=== PATIENT | female | born 1970 | race Hispanic/Latino ===

== ENCOUNTER 2018-09-02 10:15 | Inpatient (IN) | payer MEDICAID, OTHER ==
[2018-09-02] VITALS (11 sets, daily range): BP systolic 107–166; BP diastolic 58–109
[~2018-09-02] VITALS: Ht 152.4 cm; Wt 87.7 kg
[2018-09-02] MEDS ORDERED: SODIUM CHLORIDE 0.9% 1000ML 1,000 ML IV ONE ×3 (10:40→13:59)
[2018-09-02] MEDS ORDERED: DICYCLOMINE HCL 10 MG/ML 2ML AMP IM ONE (10:40)
[2018-09-02] MEDS ORDERED: ONDANSETRON HCL 4 MG/2 ML VIAL ONE ×2 (10:41→11:48)
[2018-09-02 10:57] LABS: APPEARANCE,URINE Clear (CLEAR); BILIRUBIN,URINE Negative (NEGATIVE); COLOR,URINE Yellow (YELLOW); GLUCOSE, URINE (UA) >=1000 mg/dL (NEGATIVE); KETONES,URINE >=160 mg/dL (NEGATIVE); LEUKOCYTE ESTERASE ,URINE Negative (NEGATIVE); NITRATE,URINE Negative (NEGATIVE); OCCULT BLOOD,URINE Moderate (NEGATIVE); PROTEIN,URINE 300 (NEGATIVE); UROBILINOGEN,URINE 0.2 mg/dL (0.2-1.0)
[2018-09-02 11:04] LABS: BASOPHILS % (AUTO) 0.7 % (0.0-5.0); EOSINOPHILS % (AUTO) 0.6 % (0.0-8.0); MEAN CORPUSCULAR VOLUME 90.5 fL (79-99); MONOCYTES % (AUTO) 5.4 % (3.0-13.0); NEUTROPHILS % (AUTO) 65.3 % (40.0-77.0); NUCLEATED RED BLOOD CELLS 0.2 % (0.0-0.19); PLATELET COUNT (AUTO) 275 K/uL (130-400); RED BLOOD CELL COUNT(AUTO) 4.78 MIL/uL (4.00-5.50); RED CELL DISTRIBUTION WIDTH 13.5 % (11.0-15.5); WHITE BLOOD COUNT (AUTO) 18.3 K/uL (4.8-10.8)
[2018-09-02 11:34] LABS: POTASSIUM 4.2 mmol/L (3.5-5.1)
[2018-09-02 11:46] LABS: BACTERIA,URINE Rare /HPF (None Seen); MUCUS,URINE Rare LPF (None Seen); RBC,URINE 0-1 /HPF (0-1); SQUAMOUS EPITHELIAL CELL,UR Few /HPF (0-2); WBC,URINE 0-1 /HPF (0-1)
[2018-09-02] MEDS ORDERED: MORPHINE SULFATE 2 MG/ML 1ML SYG ONE (11:48)
[2018-09-02 11:57] LABS: HEMATOCRIT 36.8 % (36-48); MEAN CORPUSCULAR HEMOGLOBIN 30.9 pg (27.0-33.0)
[2018-09-02 11:58] LABS: MEAN CORPUSCULAR HGB CONC 34.2 g/dL (32.0-36.0)
[2018-09-02 12:22] LABS: ABG BASE EXCESS -12.4 mmol/L (-2.0-3.0); ABG HCO3 14.2 mmol/L (21.0-28.0); ABG OXYGEN SATURATION 95.5 % (95.0-99.0); ABG PCO2 35 mmHg (32-45)
[2018-09-02 12:30] LABS: BILIRUBIN,DIRECT 0.1 mg/dL (0.0-0.3); BILIRUBIN,TOTAL 0.6 mg/dL (0.2-1.0); CREATININE 0.3 mg/dL (0.5-1.5)
[2018-09-02 12:31] LABS: TOTAL PROTEIN, SERUM 6.6 g/dL (6.0-8.3)
[2018-09-02] MEDS ORDERED: INSULIN HUMULIN R 100 UNIT/ML 3ML ONE (12:32)
[2018-09-02] MEDS ORDERED: SODIUM CHLORIDE 0.9% 100 ML IV ONE (12:32)
[2018-09-02] MEDS ORDERED: HUMAN IV SCH ×2 (13:30)
[2018-09-02] MEDS ORDERED: SODIUM CHLORIDE 0.9% 1000ML 1,000 ML IV SCH ×2 (13:30→16:24)
[2018-09-02] MEDS ORDERED: INSULIN REGULAR IV SCH ×2 (13:30)
[2018-09-02] MEDS ORDERED: [UNRECOGNIZED DRUG - OTHER] IV SCH ×2 (13:30)
[2018-09-02] MEDS ORDERED: MORPHINE SULFATE 4 MG/1ML SYG ONE (13:59)
[2018-09-02 15:01] LABS: POTASSIUM 5.4 mmol/L (3.5-5.1)
[2018-09-02 15:49] LABS: MAGNESIUM 1.56 mg/dL (1.80-2.40); PHOSPHORUS 3.5 mg/dL (2.5-4.9)
[2018-09-02 15:51] LABS: CREATININE 0.3 mg/dL (0.5-1.5)
[2018-09-02] MEDS ORDERED: DEXTROSE 5 %-0.45 % NACL 1,000 ML IV PRN (16:24)
[2018-09-02] MEDS: INSULIN HUMULIN R 100 UNIT/ML 3ML IV SCH (16:30)
[2018-09-02] MEDS: ONDANSETRON HCL 4 MG/2 ML VIAL IV PRN ×2 (16:59→22:56)
[2018-09-02] MEDS: MORPHINE SULFATE 4 MG/1ML SYG IV PRN ×2 (17:01→20:59)
[2018-09-02 17:54] LABS: HEMOGLOBIN A1C 11.7 % (4.0-6.0)
[2018-09-02] MEDS: SODIUM CHLORIDE 0.9% 1000ML 1,000 ML IV SCH ×2 (19:48→19:52)
[2018-09-02] MEDS: MAG HYDROX/AL HYDROX/SIMETH ES 30 ML SUSP UDCUP PO PRN (19:50)
[2018-09-02] MEDS: ACETAMINOPHEN 325 MG TAB PO PRN ×2 (19:51→20:02)
[2018-09-02] MEDS ORDERED: METOPROLOL TARTRATE 1 MG/ML 5ML VIAL IV PRN (20:30)
[2018-09-02] MEDS: POTASSIUM CHLORIDE 10MEQ/100ML 100 ML IV PRN ×2 (20:33→22:36)
[2018-09-02 21:14] LABS: MAGNESIUM 1.4 mg/dL (1.80-2.40); POTASSIUM 3.7 mmol/L (3.5-5.1)
[2018-09-02 21:55] LABS: CREATININE 0.3 mg/dL (0.5-1.5)
[2018-09-02] MEDS ORDERED: POTASSIUM CHLORIDE 20MEQ/100ML 100 ML IV ONE (23:47)
[2018-09-03] VITALS (19 sets, daily range): BP systolic 109–158; BP diastolic 41–110
[2018-09-03] MEDS ORDERED: KETOROLAC TROMETHAMINE 30MG/ML ONE (00:41)
[2018-09-03] MEDS ORDERED: MAGNESIUM 2GM PREMIX 50ML 50 ML IV ONE (00:42)
[2018-09-03] MEDS: SODIUM CHLORIDE 0.9% 1000ML 1,000 ML IV SCH ×5 (00:56→19:48)
[2018-09-03 02:40] LABS: POTASSIUM 4.5 mmol/L (3.5-5.1)
[2018-09-03 02:41] LABS: AMYLASE 365 U/L (25-115); CREATININE 0.4 mg/dL (0.5-1.5); HDL CHOLESTEROL 12 mg/dL (35-85); MAGNESIUM 1.92 mg/dL (1.80-2.40); PHOSPHORUS 2.3 mg/dL (2.5-4.9); TRIGLYCERIDES 63 mg/dL (30-200)
[2018-09-03 02:55] LABS: LIPASE 2774 U/L (114-286)
[2018-09-03 02:56] LABS: LDL DIRECT < 5 mg/dL (0-99)
[2018-09-03 03:43] LABS: CHOLESTEROL > 600 mg/dL (<200)
[2018-09-03] MEDS: MORPHINE SULFATE 4 MG/1ML SYG IV PRN ×5 (04:07→22:15)
[2018-09-03] MEDS: KETOROLAC TROMETHAMINE 30MG/ML IV PRN (08:19)
[2018-09-03 08:25] LABS: CREATININE 0.6 mg/dL (0.5-1.5); MAGNESIUM 1.9 mg/dL (1.80-2.40); PHOSPHORUS 1.3 mg/dL (2.5-4.9); POTASSIUM 4.2 mmol/L (3.5-5.1)
[2018-09-03] MEDS: ENOXAPARIN SODIUM 40 MG/0.4 ML SYRINGE SQ SCH (09:29)
[2018-09-03] MEDS: PANTOPRAZOLE 40 MG/VIAL IVP SCH (09:33)
[2018-09-03 14:11] LABS: CREATININE 0.5 mg/dL (0.5-1.5)
[2018-09-03 14:13] LABS: PHOSPHORUS 1.1 mg/dL (2.5-4.9)
[2018-09-03] MEDS: POTASSIUM PHOS 15 mMOL+NS250ML 250 ML IV SCH (15:00)
[2018-09-03] MEDS ORDERED: HYDROMORPHONE 1 MG/1 ML AMP ONE (19:31)
[2018-09-03] MEDS: HYDROMORPHONE HCL 2 MG/ML VIAL IVP PRN (19:47)
[2018-09-03] MEDS: INSULIN HUMULIN R 100 UNIT/ML 3ML IV SCH (19:48)
[2018-09-04] VITALS (14 sets, daily range): BP systolic 100–141; BP diastolic 39–80
[2018-09-04] MEDS ORDERED: HYDROMORPHONE 1 MG/1 ML AMP ONE ×3 (01:41→19:59)
[2018-09-04] MEDS: HYDROMORPHONE HCL 2 MG/ML VIAL IVP PRN ×3 (01:46→20:11)
[2018-09-04 03:38] LABS: BASOPHILS % (AUTO) 0.7 % (0.0-5.0); EOSINOPHILS % (AUTO) 0.2 % (0.0-8.0); MEAN CORPUSCULAR HEMOGLOBIN 30.8 pg (27.0-33.0); MEAN CORPUSCULAR HGB CONC 33.9 g/dL (32.0-36.0); MEAN CORPUSCULAR VOLUME 90.8 fL (79-99); MONOCYTES % (AUTO) 4.3 % (3.0-13.0); NEUTROPHILS % (AUTO) 82.8 % (40.0-77.0); NUCLEATED RED BLOOD CELLS 0.1 % (0.0-0.19); PLATELET COUNT (AUTO) 185 K/uL (130-400); RED BLOOD CELL COUNT(AUTO) 4.29 MIL/uL (4.00-5.50); RED CELL DISTRIBUTION WIDTH 14.2 % (11.0-15.5)
[2018-09-04 03:48] LABS: ALBUMIN 2.2 g/dL (3.5-5.0); BILIRUBIN,TOTAL 0.8 mg/dL (0.2-1.0); CREATININE 0.5 mg/dL (0.5-1.5); POTASSIUM 3.5 mmol/L (3.5-5.1); TOTAL PROTEIN, SERUM 6.2 g/dL (6.0-8.3)
[2018-09-04] MEDS: INSULIN GLARGINE 100 UNITS/ML 10 ML VIAL SQ SCH ×2 (07:41→20:12)
[2018-09-04] MEDS: PANTOPRAZOLE 40 MG/VIAL IVP SCH (07:44)
[2018-09-04] MEDS: ENOXAPARIN SODIUM 40 MG/0.4 ML SYRINGE SQ SCH (07:49)
[2018-09-04] MEDS: POTASSIUM CHLORIDE 20MEQ/100ML 100 ML IV PRN (07:55)
[2018-09-04] MEDS: KETOROLAC TROMETHAMINE 30MG/ML IV PRN ×3 (08:01→15:56)
[2018-09-04] MEDS: INSULIN LISPRO 100 UNIT/ML 3ML SQ SCH ×3 (12:20→23:48)
[2018-09-04] MEDS: MORPHINE SULFATE 4 MG/1ML SYG IV PRN ×2 (12:20→23:00)
[2018-09-04 13:33] LABS: CREATININE 0.5 mg/dL (0.5-1.5); MAGNESIUM 2.2 mg/dL (1.80-2.40); PHOSPHORUS 1.3 mg/dL (2.5-4.9); POTASSIUM 3.9 mmol/L (3.5-5.1)
[2018-09-04] MEDS: SODIUM CHLORIDE 0.9% 1000ML 1,000 ML IV SCH ×3 (15:40→23:49)
[2018-09-04] MEDS: POTASSIUM PHOS 15 mMOL+NS250ML 250 ML IV SCH (15:41)
[2018-09-05] MEDS ORDERED: HYDROMORPHONE 1 MG/1 ML AMP ONE ×2 (00:58→06:34)
[2018-09-05] MEDS: HYDROMORPHONE HCL 2 MG/ML VIAL IVP PRN ×2 (01:01→06:40)
[2018-09-05] MEDS: MORPHINE SULFATE 2 MG/ML 1ML SYG IV PRN (03:11)
[2018-09-05 03:39] LABS: HEMATOCRIT 34.4 % (36-48); MEAN CORPUSCULAR HEMOGLOBIN 31.2 pg (27.0-33.0); MEAN CORPUSCULAR HGB CONC 34.3 g/dL (32.0-36.0); MEAN CORPUSCULAR VOLUME 90.9 fL (79-99); PLATELET COUNT (AUTO) 219 K/uL (130-400); RED BLOOD CELL COUNT(AUTO) 3.78 MIL/uL (4.00-5.50); RED CELL DISTRIBUTION WIDTH 14.3 % (11.0-15.5); WHITE BLOOD COUNT (AUTO) 8.3 K/uL (4.8-10.8)
[2018-09-05 03:51] LABS: CREATININE 0.5 mg/dL (0.5-1.5); MAGNESIUM 2.2 mg/dL (1.80-2.40); PHOSPHORUS 1.8 mg/dL (2.5-4.9); POTASSIUM 3.6 mmol/L (3.5-5.1)
[2018-09-05 04:00] VITALS: BP 113/73
[2018-09-05] MEDS: INSULIN GLARGINE 100 UNITS/ML 10 ML VIAL SQ SCH ×2 (06:25→22:59)
[2018-09-05] MEDS: INSULIN LISPRO 100 UNIT/ML 3ML SQ SCH ×3 (06:25→18:26)
[2018-09-05] MEDS: MAG HYDROX/AL HYDROX/SIMETH ES 30 ML SUSP UDCUP PO PRN (06:41)
[2018-09-05 07:27] VITALS: BP 129/44
[2018-09-05] MEDS: FAMOTIDINE/PF 20 MG/2 ML VIAL IV SCH ×2 (08:28→20:14)
[2018-09-05] MEDS: FENOFIBRATE NANOCRYSTALLIZED 145 MG TAB PO SCH (08:28)
[2018-09-05] MEDS: ENOXAPARIN SODIUM 40 MG/0.4 ML SYRINGE SQ SCH (08:28)
[2018-09-05] MEDS: SODIUM CHLORIDE 0.9% 1000ML 1,000 ML IV SCH ×3 (08:29→23:00)
[2018-09-05] MEDS ORDERED: LORAZEPAM 2 MG/ML 1 ML VIAL IVP PRN (11:15)
[2018-09-05] MEDS ORDERED: LORAZEPAM 2 MG/ML 1 ML VIAL ONE (11:41)
[2018-09-05] MEDS: MORPHINE SULFATE 4 MG/1ML SYG IV PRN ×4 (13:18→22:57)
[2018-09-05 13:32] LABS: CREATININE 0.4 mg/dL (0.5-1.5); MAGNESIUM 1.9 mg/dL (1.80-2.40); PHOSPHORUS 2.1 mg/dL (2.5-4.9); POTASSIUM 3.2 mmol/L (3.5-5.1)
[2018-09-05] MEDS: NICOTINE 21 MG/ 24 HR PATCH TD SCH (14:55)
[2018-09-05] MEDS ORDERED: DIATR MEGLU/DIATRIZOATE SODIUM 30 ML BOTTLE ONE (15:11)
[2018-09-05 16:17] VITALS: BP 137/86
[2018-09-05 20:00] VITALS: BP 127/73
[2018-09-05] MEDS: NIACIN 250 MG TABLET.SA PO SCH ×2 (20:19→21:00)
[2018-09-05 23:59] VITALS: BP 134/65
[2018-09-06] MEDS: MORPHINE SULFATE 4 MG/1ML SYG IV PRN ×4 (01:33→22:25)
[2018-09-06] MEDS: KETOROLAC TROMETHAMINE 30MG/ML IV PRN ×3 (03:27→16:54)
[2018-09-06] MEDS: SODIUM CHLORIDE 0.9% 1000ML 1,000 ML IV SCH ×3 (03:32→20:41)
[2018-09-06 03:42] LABS: HEMATOCRIT 33.9 % (36-48); MEAN CORPUSCULAR HEMOGLOBIN 30.1 pg (27.0-33.0); MEAN CORPUSCULAR HGB CONC 33.4 g/dL (32.0-36.0); MEAN CORPUSCULAR VOLUME 90.2 fL (79-99); PLATELET COUNT (AUTO) 207 K/uL (130-400); RED BLOOD CELL COUNT(AUTO) 3.76 MIL/uL (4.00-5.50); RED CELL DISTRIBUTION WIDTH 14.3 % (11.0-15.5); WHITE BLOOD COUNT (AUTO) 10.2 K/uL (4.8-10.8)
[2018-09-06] MEDS ORDERED: HYDROMORPHONE HCL 2 MG/ML VIAL IVP PRN (03:45)
[2018-09-06 03:58] LABS: CREATININE 0.4 mg/dL (0.5-1.5)
[2018-09-06 04:00] VITALS: BP 138/85
[2018-09-06 04:13] LABS: POTASSIUM 2.9 mmol/L (3.5-5.1)
[2018-09-06] MEDS: POTASSIUM CHLORIDE 20MEQ/100ML 100 ML IV PRN ×4 (04:56→16:56)
[2018-09-06] MEDS: LIDOCAINE HCL-MPF 1% 2ML VIAL IVP PRN ×4 (05:03→16:57)
[2018-09-06] MEDS: INSULIN LISPRO 100 UNIT/ML 3ML SQ SCH ×4 (06:00→18:44)
[2018-09-06] MEDS: INSULIN GLARGINE 100 UNITS/ML 10 ML VIAL SQ SCH ×2 (06:38→21:52)
[2018-09-06 07:49] VITALS: BP_SYST 122; BP_SYST 157; BP_DIAS 82; BP_DIAS 98
[2018-09-06] MEDS: FAMOTIDINE/PF 20 MG/2 ML VIAL IV SCH ×2 (09:27→21:39)
[2018-09-06] MEDS: NICOTINE 21 MG/ 24 HR PATCH TD SCH (09:39)
[2018-09-06] MEDS ORDERED: LIDOCAINE HCL MPF 1% 5ML VIAL ONE (09:44)
[2018-09-06] MEDS: FENOFIBRATE NANOCRYSTALLIZED 145 MG TAB PO SCH (11:01)
[2018-09-06] MEDS: ENOXAPARIN SODIUM 40 MG/0.4 ML SYRINGE SQ SCH (11:06)
[2018-09-06 11:26] VITALS: BP 140/90
[2018-09-06] MEDS: ONDANSETRON HCL 4 MG/2 ML VIAL IV PRN (12:55)
[2018-09-06 13:05] LABS: MAGNESIUM 1.8 mg/dL (1.80-2.40); POTASSIUM 3.3 mmol/L (3.5-5.1)
[2018-09-06] MEDS: MAGNESIUM 2GM PREMIX 50ML 50 ML IV PRN (13:20)
[2018-09-06 13:35] LABS: CREATININE 0.4 mg/dL (0.5-1.5)
[2018-09-06 16:27] VITALS: BP 143/65
[2018-09-06 20:31] VITALS: BP 131/80
[2018-09-06] MEDS: NIACIN 250 MG TABLET.SA PO SCH (21:00)
[2018-09-07] VITALS (7 sets, daily range): BP systolic 126–145; BP diastolic 58–79
[2018-09-07] MEDS: ONDANSETRON HCL 4 MG/2 ML VIAL IV PRN ×2 (01:13→10:22)
[2018-09-07] MEDS: KETOROLAC TROMETHAMINE 30MG/ML IV PRN ×3 (01:13→17:17)
[2018-09-07] MEDS: SODIUM CHLORIDE 0.9% 1000ML 1,000 ML IV SCH ×4 (02:15→21:28)
[2018-09-07 04:06] LABS: HEMATOCRIT 30.9 % (36-48); MEAN CORPUSCULAR HEMOGLOBIN 30.7 pg (27.0-33.0); MEAN CORPUSCULAR VOLUME 90.3 fL (79-99); NUCLEATED RED BLOOD CELLS 0.1 % (0.0-0.19); PLATELET COUNT (AUTO) 231 K/uL (130-400); RED BLOOD CELL COUNT(AUTO) 3.43 MIL/uL (4.00-5.50); RED CELL DISTRIBUTION WIDTH 14.3 % (11.0-15.5); WHITE BLOOD COUNT (AUTO) 9.2 K/uL (4.8-10.8)
[2018-09-07 04:19] LABS: CREATININE 0.4 mg/dL (0.5-1.5)
[2018-09-07 04:51] LABS: CRP QUANTITATIVE 188.4 mg/L (0.00-9.0)
[2018-09-07] MEDS: INSULIN LISPRO 100 UNIT/ML 3ML SQ SCH ×5 (06:00→23:52)
[2018-09-07] MEDS: MORPHINE SULFATE 2 MG/ML 1ML SYG IV PRN ×2 (06:43→14:34)
[2018-09-07] MEDS: POTASSIUM CHLORIDE 20MEQ/100ML 100 ML IV PRN ×3 (06:44→23:34)
[2018-09-07] MEDS: LIDOCAINE HCL-MPF 1% 2ML VIAL IVP PRN (06:44)
[2018-09-07] MEDS: INSULIN GLARGINE 100 UNITS/ML 10 ML VIAL SQ SCH ×2 (07:02→21:28)
[2018-09-07] MEDS: NICOTINE 21 MG/ 24 HR PATCH TD SCH (09:00)
[2018-09-07] MEDS: FENOFIBRATE NANOCRYSTALLIZED 145 MG TAB PO SCH (09:00)
[2018-09-07] MEDS: FAMOTIDINE/PF 20 MG/2 ML VIAL IV SCH ×2 (10:07→21:16)
[2018-09-07] MEDS ORDERED: LIDOCAINE HCL MPF 1% 5ML VIAL ONE (10:19)
[2018-09-07] MEDS: ENOXAPARIN SODIUM 40 MG/0.4 ML SYRINGE SQ SCH (10:23)
[2018-09-07 13:46] LABS: CREATININE 0.4 mg/dL (0.5-1.5); POTASSIUM 3.6 mmol/L (3.5-5.1)
[2018-09-07 13:50] LABS: MAGNESIUM 1.5 mg/dL (1.80-2.40); PHOSPHORUS 3.4 mg/dL (2.5-4.9)
[2018-09-07] MEDS: MAGNESIUM 2GM PREMIX 50ML 50 ML IV PRN (17:18)
[2018-09-07] MEDS: NIACIN 250 MG TABLET.SA PO SCH (21:00)
[2018-09-07] MEDS: BISACODYL 10 MG SUPP.RECT RC SCH (21:17)
[2018-09-07] MEDS: LUBIPROSTONE 24 MCG CAP PO SCH (21:17)
[2018-09-07] MEDS: HYDROMORPHONE 1 MG/1 ML AMP IVP PRN (23:18)
[2018-09-08 03:00] VITALS: BP 126/51
[2018-09-08] MEDS: HYDROMORPHONE 1 MG/1 ML AMP IVP PRN ×4 (03:21→22:38)
[2018-09-08] MEDS: SODIUM CHLORIDE 0.9% 1000ML 1,000 ML IV SCH ×3 (04:11→17:34)
[2018-09-08 04:14] LABS: HEMATOCRIT 30.6 % (36-48); MEAN CORPUSCULAR HEMOGLOBIN 30.2 pg (27.0-33.0); MEAN CORPUSCULAR HGB CONC 33.6 g/dL (32.0-36.0); MEAN CORPUSCULAR VOLUME 89.9 fL (79-99); PLATELET COUNT (AUTO) 200 K/uL (130-400); RED CELL DISTRIBUTION WIDTH 14.2 % (11.0-15.5)
[2018-09-08 04:28] LABS: ALBUMIN 1.7 g/dL (3.5-5.0); CREATININE 0.4 mg/dL (0.5-1.5); MAGNESIUM 1.6 mg/dL (1.80-2.40); POTASSIUM 3.1 mmol/L (3.5-5.1)
[2018-09-08 04:50] LABS: CRP QUANTITATIVE 239.2 mg/L (0.00-9.0)
[2018-09-08] MEDS: POTASSIUM CHLORIDE 20MEQ/100ML 100 ML IV PRN ×2 (05:34→11:28)
[2018-09-08] MEDS: INSULIN LISPRO 100 UNIT/ML 3ML SQ SCH ×3 (05:43→17:31)
[2018-09-08 08:23] VITALS: BP 125/58
[2018-09-08] MEDS: NICOTINE 21 MG/ 24 HR PATCH TD SCH (09:00)
[2018-09-08] MEDS: INSULIN GLARGINE 100 UNITS/ML 10 ML VIAL SQ SCH ×2 (09:08→21:18)
[2018-09-08] MEDS: LUBIPROSTONE 24 MCG CAP PO SCH ×2 (09:15→20:50)
[2018-09-08] MEDS: FAMOTIDINE/PF 20 MG/2 ML VIAL IV SCH ×2 (09:15→20:48)
[2018-09-08] MEDS: FENOFIBRATE NANOCRYSTALLIZED 145 MG TAB PO SCH (09:15)
[2018-09-08] MEDS: ENOXAPARIN SODIUM 40 MG/0.4 ML SYRINGE SQ SCH (09:15)
[2018-09-08] MEDS: BISACODYL 10 MG SUPP.RECT RC SCH ×2 (09:16→19:28)
[2018-09-08] MEDS: MAGNESIUM 2GM PREMIX 50ML 50 ML IV SCH (09:30)
[2018-09-08] MEDS: ACETAMINOPHEN 325 MG TAB PO PRN (09:31)
[2018-09-08 12:00] VITALS: BP 118/74
[2018-09-08 16:53] VITALS: BP 112/56
[2018-09-08 19:23] VITALS: BP 114/54
[2018-09-08] MEDS: NIACIN 250 MG TABLET.SA PO SCH ×2 (19:28→20:50)
[2018-09-08 23:04] VITALS: BP 119/58
[2018-09-09] MEDS: SODIUM CHLORIDE 0.9% 1000ML 1,000 ML IV SCH ×4 (00:49→19:59)
[2018-09-09] MEDS: HYDROMORPHONE 1 MG/1 ML AMP IVP PRN ×4 (02:50→20:00)
[2018-09-09 03:25] VITALS: BP 107/51
[2018-09-09 04:36] LABS: HEMATOCRIT 30.4 % (36-48); MEAN CORPUSCULAR HEMOGLOBIN 31.1 pg (27.0-33.0); MEAN CORPUSCULAR HGB CONC 34.5 g/dL (32.0-36.0); MEAN CORPUSCULAR VOLUME 90.1 fL (79-99); PLATELET COUNT (AUTO) 246 K/uL (130-400); RED BLOOD CELL COUNT(AUTO) 3.38 MIL/uL (4.00-5.50); RED CELL DISTRIBUTION WIDTH 14.2 % (11.0-15.5); WHITE BLOOD COUNT (AUTO) 11.5 K/uL (4.8-10.8)
[2018-09-09 04:51] LABS: % IRON SATURATION 25.6 % (22-44)
[2018-09-09 04:59] LABS: ALBUMIN 1.7 g/dL (3.5-5.0); BILIRUBIN,TOTAL 0.8 mg/dL (0.2-1.0); CREATININE 0.4 mg/dL (0.5-1.5); TOTAL PROTEIN, SERUM 5.6 g/dL (6.0-8.3)
[2018-09-09 05:14] LABS: CRP QUANTITATIVE 247.1 mg/L (0.00-9.0)
[2018-09-09] MEDS ORDERED: LIDOCAINE HCL MPF 1% 5ML VIAL ONE ×2 (05:30→19:56)
[2018-09-09] MEDS: POTASSIUM CHLORIDE 20MEQ/100ML 100 ML IV PRN ×3 (05:32→19:59)
[2018-09-09] MEDS: INSULIN LISPRO 100 UNIT/ML 3ML SQ SCH ×4 (05:41→17:40)
[2018-09-09] MEDS: NICOTINE 21 MG/ 24 HR PATCH TD SCH (07:41)
[2018-09-09] MEDS: BISACODYL 10 MG SUPP.RECT RC SCH ×2 (07:41→20:01)
[2018-09-09 07:50] VITALS: BP 115/64
[2018-09-09] MEDS: INSULIN GLARGINE 100 UNITS/ML 10 ML VIAL SQ SCH ×2 (08:08→21:30)
[2018-09-09] MEDS: FENOFIBRATE NANOCRYSTALLIZED 145 MG TAB PO SCH (08:51)
[2018-09-09] MEDS: FAMOTIDINE/PF 20 MG/2 ML VIAL IV SCH ×2 (08:51→20:02)
[2018-09-09] MEDS: ENOXAPARIN SODIUM 40 MG/0.4 ML SYRINGE SQ SCH (08:51)
[2018-09-09] MEDS: LUBIPROSTONE 24 MCG CAP PO SCH ×2 (08:51→20:01)
[2018-09-09 11:01] VITALS: BP 116/68
[2018-09-09] MEDS ORDERED: IOHEXOL-350 75 ML VIAL IV ONE (15:39)
[2018-09-09] MEDS ORDERED: DIATR MEGLU/DIATRIZOATE SODIUM 30 ML BOTTLE ONE (15:40)
[2018-09-09 16:00] VITALS: BP 114/70
[2018-09-09 19:40] VITALS: BP 135/52
[2018-09-09] MEDS: NIACIN 250 MG TABLET.SA PO SCH (20:01)
[2018-09-09 23:21] VITALS: BP 123/60
[2018-09-10] MEDS: HYDROMORPHONE 1 MG/1 ML AMP IVP PRN ×6 (00:06→23:13)
[2018-09-10 03:40] VITALS: BP 124/52
[2018-09-10] MEDS: SODIUM CHLORIDE 0.9% 1000ML 1,000 ML IV SCH ×3 (04:12→12:15)
[2018-09-10 04:47] LABS: BASOPHILS % (AUTO) 0.2 % (0.0-5.0); EOSINOPHILS % (AUTO) 0.5 % (0.0-8.0); HEMATOCRIT 30.9 % (36-48); LYMPHOCYTES % (AUTO) 11.7 % (21.0-51.0); MEAN CORPUSCULAR HEMOGLOBIN 29.4 pg (27.0-33.0); MEAN CORPUSCULAR HGB CONC 32.9 g/dL (32.0-36.0); MEAN CORPUSCULAR VOLUME 89.2 fL (79-99); MONOCYTES % (AUTO) 5.6 % (3.0-13.0); PLATELET COUNT (AUTO) 225 K/uL (130-400); RED BLOOD CELL COUNT(AUTO) 3.46 MIL/uL (4.00-5.50); RED CELL DISTRIBUTION WIDTH 14.1 % (11.0-15.5); WHITE BLOOD COUNT (AUTO) 12.7 K/uL (4.8-10.8)
[2018-09-10 04:59] LABS: ALBUMIN 1.7 g/dL (3.5-5.0); BILIRUBIN,TOTAL 0.6 mg/dL (0.2-1.0); CREATININE 0.3 mg/dL (0.5-1.5); MAGNESIUM 1.4 mg/dL (1.80-2.40); PHOSPHORUS 3.9 mg/dL (2.5-4.9); POTASSIUM 3.2 mmol/L (3.5-5.1); TOTAL PROTEIN, SERUM 5.6 g/dL (6.0-8.3)
[2018-09-10] MEDS: INSULIN LISPRO 100 UNIT/ML 3ML SQ SCH ×4 (05:16→18:00)
[2018-09-10] MEDS: LIDOCAINE HCL MPF 1% 5ML VIAL IVP PRN ×2 (05:17→14:47)
[2018-09-10] MEDS: POTASSIUM CHLORIDE 20MEQ/100ML 100 ML IV PRN ×2 (05:17→14:47)
[2018-09-10] MEDS: MAGNESIUM 2GM PREMIX 50ML 50 ML IV SCH (05:18)
[2018-09-10 05:49] LABS: B-TYPE NATRIURETIC PEPTIDE 52 pg/mL (0-100)
[2018-09-10] MEDS: INSULIN GLARGINE 100 UNITS/ML 10 ML VIAL SQ SCH ×2 (06:34→20:53)
[2018-09-10 08:05] VITALS: BP 137/88
[2018-09-10] MEDS: LUBIPROSTONE 24 MCG CAP PO SCH ×2 (09:14→21:50)
[2018-09-10] MEDS: PANTOPRAZOLE SODIUM 40 MG TABLET.DR PO SCH (09:14)
[2018-09-10] MEDS: FAMOTIDINE/PF 20 MG/2 ML VIAL IV SCH ×2 (09:14→20:45)
[2018-09-10] MEDS: BISACODYL 10 MG SUPP.RECT RC SCH ×2 (09:15→20:45)
[2018-09-10] MEDS: FENOFIBRATE NANOCRYSTALLIZED 145 MG TAB PO SCH (09:15)
[2018-09-10] MEDS: ENOXAPARIN SODIUM 40 MG/0.4 ML SYRINGE SQ SCH (09:15)
[2018-09-10] MEDS: NICOTINE 21 MG/ 24 HR PATCH TD SCH (09:17)
[2018-09-10] MEDS ORDERED: LACTATED RINGERS 1000ML 1,000 ML IV SCH (11:00)
[2018-09-10] MEDS ORDERED: LACTATED RINGERS 1000ML 1,000 ML IV ONE (11:02)
[2018-09-10 11:13] VITALS: BP 125/62
[2018-09-10] MEDS: CEFTRIAXONE SODIUM 2 GM VIAL IVP SCH (14:48)
[2018-09-10 16:22] VITALS: BP 127/69
[2018-09-10 19:55] VITALS: BP 123/57
[2018-09-10] MEDS: NIACIN 250 MG TABLET.SA PO SCH (20:45)
[2018-09-11] VITALS (8 sets, daily range): BP systolic 103–128; BP diastolic 40–69
[2018-09-11 04:10] LABS: CREATININE 0.4 mg/dL (0.5-1.5); POTASSIUM 3.4 mmol/L (3.5-5.1)
[2018-09-11] MEDS: SODIUM CHLORIDE 0.9% 1000ML 1,000 ML IV SCH ×3 (04:36→22:10)
[2018-09-11] MEDS: HYDROMORPHONE 1 MG/1 ML AMP IVP PRN ×4 (04:37→23:15)
[2018-09-11] MEDS: POTASSIUM CHLORIDE 20MEQ/100ML 100 ML IV PRN (04:40)
[2018-09-11] MEDS: LIDOCAINE HCL MPF 1% 5ML VIAL IVP PRN (04:41)
[2018-09-11] MEDS: INSULIN LISPRO 100 UNIT/ML 3ML SQ SCH ×4 (06:00→21:54)
[2018-09-11] MEDS: INSULIN GLARGINE 100 UNITS/ML 10 ML VIAL SQ SCH ×2 (06:32→22:08)
[2018-09-11] MEDS: LUBIPROSTONE 24 MCG CAP PO SCH ×2 (09:00→21:52)
[2018-09-11] MEDS: FAMOTIDINE/PF 20 MG/2 ML VIAL IV SCH ×2 (09:20→21:54)
[2018-09-11] MEDS: PANTOPRAZOLE SODIUM 40 MG TABLET.DR PO SCH (09:20)
[2018-09-11] MEDS: NICOTINE 21 MG/ 24 HR PATCH TD SCH (09:20)
[2018-09-11] MEDS: ENOXAPARIN SODIUM 40 MG/0.4 ML SYRINGE SQ SCH (09:20)
[2018-09-11] MEDS: BISACODYL 10 MG SUPP.RECT RC SCH ×2 (09:21→21:00)
[2018-09-11] MEDS: FENOFIBRATE NANOCRYSTALLIZED 145 MG TAB PO SCH (09:21)
[2018-09-11 09:33] LABS: BASOPHILS % (AUTO) 0.3 % (0.0-5.0); EOSINOPHILS % (AUTO) 0.5 % (0.0-8.0); HEMATOCRIT 30.3 % (36-48); LYMPHOCYTES % (AUTO) 15.9 % (21.0-51.0); MEAN CORPUSCULAR HEMOGLOBIN 30.9 pg (27.0-33.0); MEAN CORPUSCULAR HGB CONC 34.4 g/dL (32.0-36.0); MEAN CORPUSCULAR VOLUME 89.7 fL (79-99); MONOCYTES % (AUTO) 6.7 % (3.0-13.0); NEUTROPHILS % (AUTO) 76.6 % (40.0-77.0); PLATELET COUNT (AUTO) 244 K/uL (130-400); RED BLOOD CELL COUNT(AUTO) 3.38 MIL/uL (4.00-5.50); RED CELL DISTRIBUTION WIDTH 14.1 % (11.0-15.5); WHITE BLOOD COUNT (AUTO) 10.1 K/uL (4.8-10.8)
[2018-09-11] MEDS: CEFTRIAXONE SODIUM 2 GM VIAL IVP SCH (14:55)
[2018-09-11] MEDS: NIACIN 250 MG TABLET.SA PO SCH (21:53)
[2018-09-12 03:50] VITALS: BP 110/43
[2018-09-12] MEDS: HYDROMORPHONE 1 MG/1 ML AMP IVP PRN ×2 (04:23→17:26)
[2018-09-12 04:26] LABS: BASOPHILS % (AUTO) 0.1 % (0.0-5.0); EOSINOPHILS % (AUTO) 0.8 % (0.0-8.0); LYMPHOCYTES % (AUTO) 18.7 % (21.0-51.0); MEAN CORPUSCULAR HEMOGLOBIN 29.6 pg (27.0-33.0); MEAN CORPUSCULAR VOLUME 89.6 fL (79-99); MONOCYTES % (AUTO) 7.1 % (3.0-13.0); NEUTROPHILS % (AUTO) 73.3 % (40.0-77.0); PLATELET COUNT (AUTO) 263 K/uL (130-400); RED BLOOD CELL COUNT(AUTO) 3.47 MIL/uL (4.00-5.50); WHITE BLOOD COUNT (AUTO) 9.2 K/uL (4.8-10.8)
[2018-09-12 04:37] LABS: CREATININE 0.4 mg/dL (0.5-1.5); POTASSIUM 3.7 mmol/L (3.5-5.1)
[2018-09-12] MEDS: INSULIN LISPRO 100 UNIT/ML 3ML SQ SCH ×3 (06:00→21:05)
[2018-09-12 07:45] VITALS: BP 96/68
[2018-09-12] MEDS: LUBIPROSTONE 24 MCG CAP PO SCH ×2 (08:47→21:04)
[2018-09-12] MEDS: BISACODYL 10 MG SUPP.RECT RC SCH ×2 (08:47→19:58)
[2018-09-12] MEDS: INSULIN GLARGINE 100 UNITS/ML 10 ML VIAL SQ SCH ×2 (09:11→21:10)
[2018-09-12] MEDS: FAMOTIDINE/PF 20 MG/2 ML VIAL IV SCH ×2 (09:11→21:04)
[2018-09-12] MEDS: PANTOPRAZOLE SODIUM 40 MG TABLET.DR PO SCH (09:11)
[2018-09-12] MEDS: NICOTINE 21 MG/ 24 HR PATCH TD SCH (09:17)
[2018-09-12] MEDS: ENOXAPARIN SODIUM 40 MG/0.4 ML SYRINGE SQ SCH (09:17)
[2018-09-12] MEDS: FENOFIBRATE NANOCRYSTALLIZED 145 MG TAB PO SCH (11:05)
[2018-09-12 11:21] VITALS: BP 116/52
[2018-09-12 16:30] VITALS: BP 120/57
[2018-09-12] MEDS: CEFTRIAXONE SODIUM 2 GM VIAL IVP SCH (16:41)
[2018-09-12] MEDS: SODIUM CHLORIDE 0.9% 1000ML 1,000 ML IV SCH (16:42)
[2018-09-12 20:46] VITALS: BP 124/67
[2018-09-12] MEDS: NIACIN 250 MG TABLET.SA PO SCH (21:04)
[2018-09-13] MEDS: HYDROMORPHONE 1 MG/1 ML AMP IVP PRN ×2 (00:11→10:03)
[2018-09-13 01:48] VITALS: BP 124/58
[2018-09-13] MEDS ORDERED: LORAZEPAM 2 MG/ML 1 ML VIAL ONE (02:06)
[2018-09-13 04:11] VITALS: BP 100/54
[2018-09-13 04:26] LABS: BASOPHILS % (AUTO) 0.3 % (0.0-5.0); EOSINOPHILS % (AUTO) 0.8 % (0.0-8.0); HEMATOCRIT 30.4 % (36-48); LYMPHOCYTES % (AUTO) 19.2 % (21.0-51.0); MEAN CORPUSCULAR HEMOGLOBIN 30.6 pg (27.0-33.0); MEAN CORPUSCULAR HGB CONC 33.9 g/dL (32.0-36.0); MEAN CORPUSCULAR VOLUME 90.2 fL (79-99); MONOCYTES % (AUTO) 7.5 % (3.0-13.0); NEUTROPHILS % (AUTO) 72.2 % (40.0-77.0); NUCLEATED RED BLOOD CELLS 0.1 % (0.0-0.19); PLATELET COUNT (AUTO) 292 K/uL (130-400); RED BLOOD CELL COUNT(AUTO) 3.38 MIL/uL (4.00-5.50); RED CELL DISTRIBUTION WIDTH 13.7 % (11.0-15.5); WHITE BLOOD COUNT (AUTO) 7.4 K/uL (4.8-10.8)
[2018-09-13] MEDS: SODIUM CHLORIDE 0.9% 1000ML 1,000 ML IV SCH (05:14)
[2018-09-13] MEDS: INSULIN LISPRO 100 UNIT/ML 3ML SQ SCH ×3 (06:00→17:00)
[2018-09-13 08:00] VITALS: BP 106/51
[2018-09-13] MEDS: BISACODYL 10 MG SUPP.RECT RC SCH ×2 (09:00→21:00)
[2018-09-13] MEDS: LUBIPROSTONE 24 MCG CAP PO SCH ×2 (09:00→22:43)
[2018-09-13] MEDS: FAMOTIDINE/PF 20 MG/2 ML VIAL IV SCH ×2 (09:44→22:44)
[2018-09-13] MEDS: INSULIN GLARGINE 100 UNITS/ML 10 ML VIAL SQ SCH ×2 (09:44→21:00)
[2018-09-13] MEDS: PANTOPRAZOLE SODIUM 40 MG TABLET.DR PO SCH (09:44)
[2018-09-13] MEDS: FENOFIBRATE NANOCRYSTALLIZED 145 MG TAB PO SCH (09:45)
[2018-09-13] MEDS: NICOTINE 21 MG/ 24 HR PATCH TD SCH (09:47)
[2018-09-13] MEDS: ENOXAPARIN SODIUM 40 MG/0.4 ML SYRINGE SQ SCH (09:50)
[2018-09-13 12:00] VITALS: BP_SYST 109; BP_SYST 111; BP_DIAS 52; BP_DIAS 65
[2018-09-13] MEDS ORDERED: CEFTRIAXONE SODIUM 1 GM IVP SCH (13:09)
[2018-09-13] MEDS: CEFTRIAXONE SODIUM 1 GM IVP SCH (15:30)
[2018-09-13 16:00] VITALS: BP 107/62
[2018-09-13 19:30] VITALS: BP 117/64
[2018-09-13] MEDS: NIACIN 250 MG TABLET.SA PO SCH (22:43)
[2018-09-14] VITALS (7 sets, daily range): BP systolic 89–121; BP diastolic 42–67
[2018-09-14] MEDS: LORAZEPAM 2 MG/ML 1 ML VIAL IVP PRN (00:54)
[2018-09-14] MEDS: SODIUM CHLORIDE 0.9% 1000ML 1,000 ML IV SCH (01:27)
[2018-09-14] MEDS: HYDROMORPHONE 1 MG/1 ML AMP IVP PRN (01:50)
[2018-09-14 04:03] LABS: BASOPHILS % (AUTO) 0.5 % (0.0-5.0); EOSINOPHILS % (AUTO) 1.3 % (0.0-8.0); HEMATOCRIT 31.6 % (36-48); LYMPHOCYTES % (AUTO) 23.4 % (21.0-51.0); MEAN CORPUSCULAR HEMOGLOBIN 30.3 pg (27.0-33.0); MEAN CORPUSCULAR HGB CONC 33.5 g/dL (32.0-36.0); MEAN CORPUSCULAR VOLUME 90.5 fL (79-99); MONOCYTES % (AUTO) 7.8 % (3.0-13.0); PLATELET COUNT (AUTO) 303 K/uL (130-400); RED BLOOD CELL COUNT(AUTO) 3.49 MIL/uL (4.00-5.50); RED CELL DISTRIBUTION WIDTH 14.1 % (11.0-15.5); WHITE BLOOD COUNT (AUTO) 7.3 K/uL (4.8-10.8)
[2018-09-14 04:14] LABS: CREATININE 0.5 mg/dL (0.5-1.5); POTASSIUM 3.7 mmol/L (3.5-5.1)
[2018-09-14] MEDS: ONDANSETRON HCL 4 MG/2 ML VIAL IV PRN (04:49)
[2018-09-14] MEDS: INSULIN LISPRO 100 UNIT/ML 3ML SQ SCH ×4 (06:00→18:00)
[2018-09-14] MEDS: INSULIN GLARGINE 100 UNITS/ML 10 ML VIAL SQ SCH ×2 (06:39→22:03)
[2018-09-14] MEDS: LUBIPROSTONE 24 MCG CAP PO SCH ×2 (09:00→18:56)
[2018-09-14] MEDS: BISACODYL 10 MG SUPP.RECT RC SCH ×2 (09:00→21:00)
[2018-09-14] MEDS: FENOFIBRATE NANOCRYSTALLIZED 145 MG TAB PO SCH (11:50)
[2018-09-14] MEDS: PANTOPRAZOLE SODIUM 40 MG TABLET.DR PO SCH (11:50)
[2018-09-14] MEDS: ENOXAPARIN SODIUM 40 MG/0.4 ML SYRINGE SQ SCH (11:51)
[2018-09-14] MEDS: FAMOTIDINE/PF 20 MG/2 ML VIAL IV SCH ×2 (11:52→21:42)
[2018-09-14] MEDS: NICOTINE 21 MG/ 24 HR PATCH TD SCH (11:52)
[2018-09-14] MEDS ORDERED: HYDROCODONE/ACETAMINOPHEN 5/325 MG TAB PO PRN (14:00)
[2018-09-14] MEDS: CEFTRIAXONE SODIUM 1 GM IVP SCH (14:01)
[2018-09-14] MEDS: ACETAMINOPHEN 325 MG TAB PO PRN (14:07)
[2018-09-14] MEDS ORDERED: ACETAMINOPHEN 325 MG TAB PO PRN (17:00)
[2018-09-14] MEDS: METFORMIN HCL 500 MG TABLET PO SCH (18:50)
[2018-09-14] MEDS: NIACIN 250 MG TABLET.SA PO SCH (21:42)
[2018-09-15] MEDS: LORAZEPAM 2 MG/ML 1 ML VIAL IVP PRN (02:12)
[2018-09-15] MEDS ORDERED: DIPHENHYDRAMINE HCL 25 MG CAPSULE PO SCH (02:30)
[2018-09-15] MEDS ORDERED: DIPHENHYDRAMINE HCL 25 MG CAPSULE ONE (02:31)
[2018-09-15 03:00] VITALS: BP 98/58
[2018-09-15 04:46] LABS: BASOPHILS % (AUTO) 0.4 % (0.0-5.0); EOSINOPHILS % (AUTO) 1.6 % (0.0-8.0); HEMATOCRIT 30.5 % (36-48); LYMPHOCYTES % (AUTO) 35.5 % (21.0-51.0); MEAN CORPUSCULAR HEMOGLOBIN 30.8 pg (27.0-33.0); MEAN CORPUSCULAR HGB CONC 34.1 g/dL (32.0-36.0); MEAN CORPUSCULAR VOLUME 90.6 fL (79-99); MONOCYTES % (AUTO) 9.2 % (3.0-13.0); NEUTROPHILS % (AUTO) 53.3 % (40.0-77.0); PLATELET COUNT (AUTO) 345 K/uL (130-400); RED BLOOD CELL COUNT(AUTO) 3.37 MIL/uL (4.00-5.50); WHITE BLOOD COUNT (AUTO) 6.2 K/uL (4.8-10.8)
[2018-09-15 05:02] LABS: CREATININE 0.5 mg/dL (0.5-1.5); POTASSIUM 3.7 mmol/L (3.5-5.1)
[2018-09-15] MEDS: INSULIN LISPRO 100 UNIT/ML 3ML SQ SCH ×4 (05:56→16:30)
[2018-09-15 08:00] VITALS: BP 99/48
[2018-09-15] MEDS: INSULIN GLARGINE 100 UNITS/ML 10 ML VIAL SQ SCH (08:00)
[2018-09-15] MEDS: LUBIPROSTONE 24 MCG CAP PO SCH (09:10)
[2018-09-15] MEDS: NICOTINE 21 MG/ 24 HR PATCH TD SCH (09:10)
[2018-09-15] MEDS: METFORMIN HCL 500 MG TABLET PO SCH ×2 (09:10→16:39)
[2018-09-15] MEDS: FAMOTIDINE/PF 20 MG/2 ML VIAL IV SCH (09:10)
[2018-09-15] MEDS: PANTOPRAZOLE SODIUM 40 MG TABLET.DR PO SCH (09:10)
[2018-09-15] MEDS: FENOFIBRATE NANOCRYSTALLIZED 145 MG TAB PO SCH (09:10)
[2018-09-15] MEDS: BISACODYL 10 MG SUPP.RECT RC SCH (09:10)
[2018-09-15] MEDS: ENOXAPARIN SODIUM 40 MG/0.4 ML SYRINGE SQ SCH (09:11)
[2018-09-15 11:00] VITALS: BP 109/58
[2018-09-15] MEDS: ACETAMINOPHEN 325 MG TAB PO PRN (12:42)
[2018-09-15] MEDS: CEFTRIAXONE SODIUM 1 GM IVP SCH (12:42)
[2018-09-15 14:23] LABS: CREATININE 0.5 mg/dL (0.5-1.5); POTASSIUM 3.8 mmol/L (3.5-5.1)
[2018-09-15 14:27] LABS: ALBUMIN 2.7 g/dL (3.5-5.0); BILIRUBIN,TOTAL 0.3 mg/dL (0.2-1.0); TOTAL PROTEIN, SERUM 6.7 g/dL (6.0-8.3)
[2018-09-15] MEDS ORDERED: PANT40TA PO (16:58)
[2018-09-15] MEDS ORDERED: METF500S7 PO (16:58)
== END 2018-09-15 18:10 | disposition home or self-care (01) | DRG 438 ==
LOC: EDH 10:15 → EDBD 10:15 → EDHIP 10:16 → 2CH 15:15 → 2BH 09-04 10:26 → 2DH 09-05 18:14 → 4CH 09-06 19:20 → 4BH 09-08 23:47
PROVIDERS: ADMIT Internal Medicine; ATTEND Internal Medicine
PROC: 0DH67UZ Insertion of Feeding Device into Stomach, Via Natural or Artificial Opening (ICD-10-PCS; principal; 2018-09-05)
DX: K85.20 Alcohol induced acute pancreatitis without necrosis or infection (principal); E11.10 Type 2 diabetes mellitus with ketoacidosis without coma; R65.11 Systemic inflammatory response syndrome (SIRS) of non-infectious origin with acute organ dysfunction; E22.2 Syndrome of inappropriate secretion of antidiuretic hormone; E87.2 Acidosis; J90 Pleural effusion, not elsewhere classified; E66.01 Morbid (severe) obesity due to excess calories; E87.6 Hypokalemia; E86.1 Hypovolemia; E78.1 Pure hyperglyceridemia; K76.0 Fatty (change of) liver, not elsewhere classified; K57.30 Diverticulosis of large intestine without perforation or abscess without bleeding; F17.210 Nicotine dependence, cigarettes, uncomplicated; E86.0 Dehydration; G47.00 Insomnia, unspecified; K59.01 Slow transit constipation; K59.03 Drug induced constipation; T40.2X5A Adverse effect of other opioids, initial encounter; Y92.89 Other specified places as the place of occurrence of the external cause; Z68.37 Body mass index [BMI] 37.0-37.9, adult; Z79.4 Long term (current) use of insulin; Z88.8 Allergy status to other drugs, medicaments and biological substances; Z91.048 Other nonmedicinal substance allergy status
CPT/HCPCS: 36415; 36600; 43752; 71045; 74018; 74170; 74176; 76705; 80048; 80053; 80061; 80076; 80339; 81001; 81025; 82040; 82140; 82150; 82803; 82948; 83036; 83540; 83550; 83605; 83690; 83735; 83880; 84100; 84132; 84484; 85025; 85027; 85610; 85730; 86140; 93005; 99291; A4218; C9113; J0500; J0696; J1170; J1650; J1815; J1885; J2060; J2270; J2405; J3475; J3480; J3490; J7030; J7042; J7120; Q0163; Q9963; Q9967

== ENCOUNTER 2019-06-27 16:11 | Emergency (ER) | payer MEDICAID, OTHER ==
[~2019-06-27 16:11] MED LIST: METF500S7 PO; PANT40TA PO
[2019-06-27 16:28] LABS: BASOPHILS % (AUTO) 0.7 % (0.0-5.0); EOSINOPHILS % (AUTO) 1.1 % (0.0-8.0); HEMATOCRIT 38.2 % (36-48); LYMPHOCYTES % (AUTO) 32.8 % (21.0-51.0); MEAN CORPUSCULAR HGB CONC 34.1 g/dL (32.0-36.0); MEAN CORPUSCULAR VOLUME 90.9 fL (79-99); MONOCYTES % (AUTO) 6.3 % (3.0-13.0); NEUTROPHILS % (AUTO) 59.1 % (40.0-77.0); NUCLEATED RED BLOOD CELLS 0.1 % (0.0-0.19); PLATELET COUNT (AUTO) 251 K/uL (130-400); RED CELL DISTRIBUTION WIDTH 13.5 % (11.0-15.5); WHITE BLOOD COUNT (AUTO) 9.5 K/uL (4.8-10.8)
[2019-06-27 16:44] LABS: INR 0.93 (0.85-1.15); PARTIAL THROMBOPLASTIN TIME 28.8 SEC (26.3-35.5); PROTHROMBIN TIME 9.8 SEC (9.6-11.6)
[2019-06-27 16:45] LABS: CREATININE 0.7 mg/dL (0.5-1.5); POTASSIUM 3.7 mmol/L (3.5-5.1)
[2019-06-27] MEDS ORDERED: SODIUM CHLORIDE 0.9% 1000ML 1,000 ML IV ONE (16:50)
[2019-06-27 16:58] LABS: ALBUMIN 3.8 g/dL (3.5-5.0); BILIRUBIN,TOTAL 0.3 mg/dL (0.2-1.0); TOTAL PROTEIN, SERUM 7.4 g/dL (6.0-8.3)
[2019-06-27 17:01] LABS: AMYLASE 57 U/L (25-115); LIPASE 158 U/L (114-286)
[2019-06-27 17:09] LABS: APPEARANCE,URINE Cloudy (CLEAR); BILIRUBIN,URINE Negative (NEGATIVE); COLOR,URINE Yellow (YELLOW); GLUCOSE, URINE (UA) >=1000 mg/dL (NEGATIVE); KETONES,URINE Negative (NEGATIVE); LEUKOCYTE ESTERASE ,URINE Negative (NEGATIVE); NITRATE,URINE Negative (NEGATIVE); OCCULT BLOOD,URINE Moderate (NEGATIVE); PROTEIN,URINE POS 2+ mg/dL (NEGATIVE)
[2019-06-27 17:12] LABS: HCG,QUAL RESULT NEGATIVE (NEGATIVE)
[2019-06-27 17:18] LABS: AMPHET/METH SCREEN,URINE NEGATIVE (NEGATIVE); BARBITURATE SCREEN, URINE NEGATIVE (NEGATIVE); BENZODIAZEPINES SCREEN,URINE NEGATIVE (NEGATIVE); CANNABINOID SCREEN,URINE NEGATIVE (NEGATIVE); COCAINE SCREEN,URINE NEGATIVE (NEGATIVE); OPIATE SCREEN,URINE NEGATIVE (NEGATIVE); PHENCYCLIDINE SCREEN,URINE NEGATIVE (NEGATIVE)
[2019-06-27] MEDS ORDERED: ASPIRIN 325 MG TABLET ONE (17:31)
[2019-06-27] MEDS ORDERED: NITROGLYCERIN 1GM/1 INCH PACKET TD ONE (17:31)
[2019-06-27] MEDS ORDERED: CYCLOBENZAPRINE HCL 10 MG TABLET ONE (17:32)
[2019-06-27] MEDS ORDERED: TRAMADOL HCL 50 MG TABLET ONE (17:32)
[2019-06-27 17:36] LABS: BACTERIA,URINE Few /HPF (None Seen); RBC,URINE None Seen /HPF (0-1); WBC,URINE None Seen /HPF (0-1)
[2019-06-27 17:37] LABS: AMORPHOUS SEDIMENT,UR Few /LPF (None Seen); CALCIUM OXALATE CRYSTALS,UR Few /LPF (None Seen)
== END 2019-06-27 19:25 | disposition home or self-care (01) ==
LOC: EDH 16:11
DX: R07.89 Other chest pain (principal); M25.512 Pain in left shoulder; E11.65 Type 2 diabetes mellitus with hyperglycemia
CPT/HCPCS: 36415; 71045; 80053; 80305; 81001; 81025; 82150; 82550; 83690; 84484 ×2; 85025; 85610; 85730; 93005 ×2; 96360; 96361; 99285; J7030